=== PATIENT | female | born 1955 | race Caucasian/White ===

== ENCOUNTER 2017-04-06 21:01 | Emergency (ER) ==
[2017-04-06 21:14] VITALS: BP 148/93; TEMP 99.1; BMI 27.1
[2017-04-06] MEDS ORDERED: LIDOCAINE HCL 1% SDV ONE (21:20)
--- NOTE | 2017-04-06 21:32 | ED.PDOC ---
General ED Provider: Dr. WILLIS IBANEZ-ER Chief Complaint: Bite Stated Complaint: i cut my finger on the puppys tooth Time Seen by Physician: 21:05 Mode of Arrival: Walk-In Information Source: Patient Exam Limitations: No limitations Primary Care Provider: STUART PRIDE Nursing and Triage Documentation Reviewed and Agree: Yes Skin Complaint Exam - Laceration/Upper Ext. Complaint/Exam Location of Injury: Right, Forearm Mechanism of Injury: Laceration Onset/Duration: one hour Symptoms Are: Still present Initial Severity: Mild Current Severity: Mild Aggravating: Movement Alleviating: Compression Associated Signs and Symptoms: Denies: Fever, Chills, Erythema, Numbness, Tingling Differential Diagnoses: Laceration Review of Systems - Review Of Systems Constitutional: Reports: No symptoms Eyes: Reports: No symptoms Ears, Nose, Mouth, Throat: Reports: No symptoms Respiratory: Reports: No symptoms Cardiac: Reports: No symptoms GI: Reports: No symptoms : Reports: No symptoms Musculoskeletal: Reports: No symptoms Skin: Reports: No symptoms Neurological: Reports: No symptoms Endocrine: Reports: No symptoms Hematologic/Lymphatic: Reports: No symptoms All Other Systems: Reviewed and Negative Past Medical History - Past Medical History Previously Healthy: Yes Endocrine: Reports: Unknown Cardiovascular: Reports: Unknown Respiratory: Reports: Unknown Hematological: Reports: Unknown Gastrointestinal: Reports: Unknown Genitourinary: Reports: Unknown Neuro/Psych: Reports: Unknown Musculoskeletal: Reports: Unknown Cancer: Reports: Unknown Last Menstrual Period: A LONG TIME AGO - Surgical History General Surgical History: Reports: Unknown - Family History Family History: Reports: Unknown - Social History Smoking Status: Former smoker Hx Substance Use: No Alcohol Screening: None Lives: With family - Immunizations Tetanus Shot up to Date: No Physical Exam - Physical Exam Appearance: Well-appearing, No pain distress, Well-nourished Pain Distress: Mild Eyes: CESAR, EOMI, Conjunctiva clear ENT: Ears normal, Nose normal, Oropharynx normal Neck: Supple Respiratory: Airway patent, Breath sounds clear, Breath sounds equal, Respirations nonlabored Cardiovascular: RRR, Pulses normal, No rub, No murmur GI/: Soft, Nontender, No masses, Bowel sounds normal, No Organomegaly Musculoskeletal: Normal strength, ROM intact, No edema, No calf tenderness Skin: Warm, Dry, Normal color Neurological: Sensation intact Psychiatric: Affect appropriate Procedures - Laceration/Wound Repair No standard instances Wound Description: Linear Wound Length (cm): 1.25cm right index fingertip Wound Explored: Clean Wound Irrigated: Yes Anesthesia: Lidocaine w/ Epi Undermining: Minimal Wound Margins: Revised Wound Repaired With: Sutures Suture Size and Type: 4.0 prolene Number of Sutures: 3 Layer Closure?: No Sterile Dressing Applied?: Yes Splint Applied?: No Sling Applied?: No Critical Care Note - Critical Care Note Total Time (mins): 0 Course - Course Orders, Labs, Meds: Orders Category Date Time Status Lidocaine HCl/Pf [Lidocaine HCl 1% Sdv] MEDS 04/06/17 21:20 Discontinued 5 ml .ROUTE .STK-MED ONE Vital Signs: Temp Pulse Resp BP Pulse Ox 04/06/17 21:02 99.1 F 93 H 18 148/93 H 94 L Departure - Departure Time of Disposition: 21:33 Disposition: HOME SELF-CARE Discharge Problem: Laceration of finger Qualifiers: Encounter type: initial encounter Finger: index finger Damage to nail status: unspecified Foreign body presence: without foreign body Laterality: right Qualified Code(s): S61.210A - Laceration without foreign body of right index finger without damage to nail, initial encounter Instructions: Finger Laceration (ED) Condition: Good Pt referred to PMD for follow-up: Yes Additional Instructions: keep sutures clean and dry==-augmentin 500mg bid x 5 days--sutures out in 7 days..return if any signs of infection Allergies/Adverse Reactions: Allergies Sulfa (Sulfonamide Antibiotics) Adverse Reaction (Verified 04/06/17 21:10) Hives Home Medications: Ambulatory Orders Meloxicam [Mobic] 15 mg PO DAILY 04/06/17 Simvastatin 5 mg PO DAILY 04/06/17
[2017-04-06] MEDS ORDERED: TETANUS DIPHTHERIA TOXOIDS IM ONE (21:36)
== END 2017-04-06 22:00 | disposition home or self-care (01) ==
LOC: ED 21:01
DX: S61.210A Laceration without foreign body of right index finger without damage to nail, initial encounter (principal); W54.0XXA Bitten by dog, initial encounter
CPT/HCPCS: 90471; 90714; 99283